=== PATIENT | male | born 1945 | race Caucasian/White ===

== ENCOUNTER 2016-06-10 11:06 | Emergency (ER) | payer OTHER ==
[~2016-06-10] VITALS: Ht 175.3 cm; Wt 85.0 kg
[2016-06-10 11:59] VITALS: BP 140/90; PULSE 110; RESP 17; TEMP 99.2; O2SAT 92
[2016-06-10 12:02] LABS: BASOPHIL % 0.3 % (0.0-2.0); EOSINOPHIL % 0.6 % (0.0-4.0); HEMATOCRIT 44.2 % (39.0-51.0); HEMO FLAGS DIFF FINAL; LYMPH % 17.8 % (9.0-44.0); LYMPHOCYTE # 1.2 TH/MM3 (1.0-4.8); MEAN CELL VOLUME 94.6 FL (80.0-100.0); MEAN CORPUSCULAR HEMOGLOBIN 33.2 PG (27.0-34.0); MEAN CORPUSCULAR HGB CONC 35.1 % (32.0-36.0); MONO % 8.1 % (0.0-8.0); NEUT % 73.2 % (16.0-70.0); PLATELET COUNT 226 TH/MM3 (150-450); RED BLOOD COUNT 4.67 MIL/MM3 (4.50-5.90); RED CELL DISTRIBUTION WIDTH 13.5 % (11.6-17.2); WHITE BLOOD COUNT 6.9 TH/MM3 (4.0-11.0)
[2016-06-10 12:08] LABS: AMPHETAMINE, URINE NEG (NEG); BARBITURATES, URINE NEG (NEG); COCAINE, URINE NEG (NEG)
[2016-06-10 12:19] LABS: ALT (GPT) 25 U/L (12-78); ANION GAP 8 MEQ/L (5-15); AST (GOT) 8 U/L (15-37); BICARBONATE 26.7 MEQ/L (21.0-32.0); BLOOD UREA NITROGEN 8 MG/DL (7-18); CHLORIDE 103 MEQ/L (98-107); GLOMERULAR FILTRATION RATE 77 ML/MIN (>89); POTASSIUM 3.5 MEQ/L (3.5-5.1); SODIUM (NA) 138 MEQ/L (136-145)
[2016-06-10 12:21] LABS: ALKALINE PHOSPHATASE 55 U/L (45-117); TOTAL BILIRUBIN ADULT 0.8 MG/DL (0.2-1.0)
--- NOTE | 2016-06-10 12:29 | PD ---
HPI Chief Complaint: Psychiatric Symptoms Time Seen by Provider: 12:24 Travel History International Travel<30 days: No Contact w/Intl Traveler<30days: No Traveled to known affect area: No History of Present Illness HPI Patient is a 70-year-old male who was brought into the emergency Department under Miranda act after threatening to hurt himself. Patient states that he went to [facility] this morning and had a "conflict". Patient states that his was not getting good care, she was discharged from there with no instructions. He states that she is home now and a solicitor came to the door selling a water softener which she signed up for that costing $10,000. He states that she is not getting enough oxygen to her brain and that now he has to prove this in order to not have to pay that Bill. Patient states that he did tell the staff at [facility] that he would hurt himself with anything happen to his but he stated that he wasn't going to do anything right now that was only if something happened to her. Patient states he feels very anxious. He endorses occasional marijuana use. His past medical history is significant for hypertension, diabetes, Parkinson's, neuropathy. [facility] Past Medical History Anxiety: Yes Cardiovascular Problems: Yes Diabetes: Yes Hypertension: Yes Neurologic: Yes (peripheral neuropathy) Parkinson's Disease: Yes Past Surgical History Tonsillectomy: Yes Other Surgery: Yes (hernia x2) Social History Alcohol Use: No Tobacco Use: No Substance Use: Yes (occasional marijuana) Allergies-Medications (Allergen,Severity, Reaction): Coded Allergies: No Known Allergies (Verified Allergy, Mild, 06/21/03) Reported Meds & Prescriptions Reported Meds & Active Scripts Active Review of Systems Except as stated in HPI: all other systems reviewed are Neg Psychiatric: Positive: Anxiety, Depression Physical Exam Narrative GENERAL: Disheveled, alert, elderly male. Ears anxious, in no acute distress. SKIN: Warm and dry. HEAD: Atraumatic. Normocephalic. EYES: Pupils equal and round. No scleral icterus. No injection or drainage. ENT: No nasal bleeding or discharge. Mucous membranes pink and moist. NECK: Trachea midline. No JVD. CARDIOVASCULAR: Regular rate and rhythm. No murmur appreciated. RESPIRATORY: No accessory muscle use. Clear to auscultation. Breath sounds equal bilaterally. GASTROINTESTINAL: Abdomen soft, non-tender, nondistended. Hepatic and splenic margins not palpable. MUSCULOSKELETAL: No obvious deformities. No clubbing. No cyanosis. No edema. NEUROLOGICAL: Awake and alert. No obvious cranial nerve deficits. Motor grossly within normal limits. Normal speech. PSYCHIATRIC: Anxious mood and affect; insight and judgment impaired. Data Data Last Documented VS Vital Signs Date Time Temp Pulse Resp B/P Pulse Ox O2 Delivery O2 Flow Rate FiO2 06/10/16 13:33 85 20 95 Room Air 06/10/16 11:59 99.2 140/90 Orders Complete Blood Count With Diff (06/10/16 11:21) Comprehensive Metabolic Panel (06/10/16 11:21) Drug Screen, Random Urine (06/10/16 11:21) Alcohol (Ethanol) (06/10/16 11:21) Psych Screen (06/10/16 11:21) Buspirone (Buspar) (06/10/16 12:30) Labs Laboratory Tests Test 06/10/16 06/10/16 11:45 11:50 Urine Opiates Screen NEG Urine Barbiturates Screen NEG Urine Amphetamines Screen NEG Urine Benzodiazepines Screen POS Urine Cocaine Screen NEG Urine Cannabinoids Screen POS White Blood Count 6.9 TH/MM3 Red Blood Count 4.67 MIL/MM3 Hemoglobin 15.5 GM/DL Hematocrit 44.2 % Mean Corpuscular Volume 94.6 FL Mean Corpuscular Hemoglobin 33.2 PG Mean Corpuscular Hemoglobin 35.1 % Concent Red Cell Distribution Width 13.5 % Platelet Count 226 TH/MM3 Mean Platelet Volume 8.3 FL Neutrophils (%) (Auto) 73.2 % Lymphocytes (%) (Auto) 17.8 % Monocytes (%) (Auto) 8.1 % Eosinophils (%) (Auto) 0.6 % Basophils (%) (Auto) 0.3 % Neutrophils # (Auto) 5.0 TH/MM3 Lymphocytes # (Auto) 1.2 TH/MM3 Monocytes # (Auto) 0.6 TH/MM3 Eosinophils # (Auto) 0.0 TH/MM3 Basophils # (Auto) 0.0 TH/MM3 CBC Comment DIFF FINAL Differential Comment Sodium Level 138 MEQ/L Potassium Level 3.5 MEQ/L Chloride Level 103 MEQ/L Carbon Dioxide Level 26.7 MEQ/L Anion Gap 8 MEQ/L Blood Urea Nitrogen 8 MG/DL Creatinine 0.97 MG/DL Estimat Glomerular Filtration 77 ML/MIN Rate Random Glucose 128 MG/DL Calcium Level 10.4 MG/DL Total Bilirubin 0.8 MG/DL Aspartate Amino Transf 8 U/L (AST/SGOT) Alanine Aminotransferase 25 U/L (ALT/SGPT) Alkaline Phosphatase 55 U/L Total Protein 7.9 GM/DL Albumin 4.1 GM/DL Ethyl Alcohol Level LESS THAN 3 MG/DL MDM Medical Decision Making Medical Screen Exam Complete: Yes Emergency Medical Condition: Yes Interpretation(s) Vital Signs Date Time Temp Pulse Resp B/P Pulse Ox O2 Delivery O2 Flow Rate FiO2 06/10/16 11:59 99.2 110 17 140/90 92 Differential Diagnosis Mood disorder versus substance abuse versus delirium versus psychosis versus anxiety versus dementia Narrative Course Patient is a 70-year-old male brought in under Miranda act after is an altercation at [facility] and subsequently stating that if anything happened to his he would harm himself. Patient appears anxious, he gets tearful when he speaks about his 's health condition. His thought process seems irrational at this time. Labs ordered and pending, psych screen ordered and pending medical clearance. Patient's vital signs assessed, his heart rate is mildly tachycardic with a rate of 110 but again patient appears anxious and is easily worked up when he speaks of his . Patient states he takes Valium at home for his anxiety. CBC is unremarkable, and chemistry is unremarkable, toxic screen shows positive for benzos and THC. Patient admits to both. Patient's heart rate was reassessed at 85, patient is medically cleared this time for psychiatric evaluation. Diagnosis Primary Impression: Medical clearance for psychiatric admission Condition: Stable Magnolia Knox Jun 10, 2016 12:29
[2016-06-10] MEDS ORDERED: busPIRone HCL 10 MG TAB PO ONE ×2 (12:30→20:45)
[2016-06-10 13:33] VITALS: PULSE 85; RESP 20; O2SAT 95
[2016-06-10 18:23] VITALS: BP 137/75; PULSE 99; RESP 18; TEMP 99.2; O2SAT 100
[2016-06-10] MEDS ORDERED: ATOR40TA16 PO (18:51)
[2016-06-10] MEDS ORDERED: METF850T PO (18:51)
[2016-06-10] MEDS ORDERED: DONE10TA7 PO (18:51)
[2016-06-10] MEDS ORDERED: MEMA28CA PO (18:51)
[2016-06-10] MEDS ORDERED: GABA300C5 PO (18:51)
[2016-06-10] MEDS ORDERED: LEXA20TA PO (18:51)
[2016-06-10] MEDS ORDERED: DIAZ10TA PO (19:02)
[2016-06-10 22:40] VITALS: BP 118/68; PULSE 85; RESP 18; O2SAT 99
[2016-06-11 02:31] VITALS: BP 116/73; PULSE 91; RESP 18; O2SAT 98
[2016-06-11 06:22] VITALS: BP 126/75; PULSE 84; RESP 18; O2SAT 98
[2016-06-11 10:13] VITALS: BP 118/61; PULSE 96; RESP 18; O2SAT 93
--- NOTE | 2016-06-11 12:10 | PD ---
History of Present Illness Chief Complaint: Psychiatric Symptoms Time Seen by Provider: 11:45 Travel History International Travel<30 Days: No Contact w/Intl Traveler<30days: No Known affected area: No Legal Status Legal Status: Miranda Act Miranda Act Signed By: Glen Hurst Miranda Act Comment: 2016 @ 1024 History of Present Illness: History of Present Illness Patient is a 70-year-old male with no previous psychiatric history who was brought to the emergency Department under Miranda act after threatening to hurt himself. As per the BA report the police responded to a disturbance. They found the patient causing a disturbance at a nursing facility after his was discharged. When he was questioned by the police he stated " he will harm himself and others as a result of this situation". Patient states that he went to [facility] this morning and had a "conflict". As per ED documentation " Patient states that he did tell the staff at [facility] that he would hurt himself with anything happen to his but he stated that he wasn't going to do anything right now that was only if something happened to her" . Patient states he feels very anxious. He endorses occasional marijuana use and presents with positive toxicology. As per EMR review he has not had previous contact with [facility] psychiatry dept. Patient has been monitored in [facility]. he has not presented any behavioral concerns and has no suicidality. He is alert and oriented, engaging and cooperative. He tends to be verbose but answers questions. His speech is clear and logical. There is no evidence of any hallucinations, no delusions and no paranoia. He deneis any significant depression. Does acknowledge feeling anxious and has oralia taking Valium " for many years now". He denies any suicidal or homicidal ideation, intent or plan. States " I said I was going to kill myself but doesn' t everyone say that at some time. That is absolutely foolish thing and I believe in God". He does report feeling overwhelmed at times due to having to take care of his . [facility] Past Medical History Anxiety: Yes Cardiovascular Problems: Yes Diabetes: Yes Hypertension: Yes Neurologic: Yes (peripheral neuropathy) Parkinson's Disease: Yes Past Surgical History Tonsillectomy: Yes Other Surgery: Yes (hernia x2) Psychiatric History Psychiatric History Hx Psychiatric Treatment: DENIES any History of Inpatient Treatment: No Guns or firearms in home: No Social History x 44 years. 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 Has no children. has one brother in [place]. Hx Alcohol Use: No Hx Tobacco Use: No Hx Substance Use: Yes Substance Use Type: Marijuana Hx of Substance Use Treatment: No Family Psychiatric History Negative Allergies-Medications (Allergen,Severity, Reaction): Coded Allergies: No Known Allergies (Verified Allergy, Mild, 06/21/03) Reported Meds & Prescriptions Reported Meds & Active Scripts Active Reported Diazepam 10 Mg Tab 10 Mg PO BID PRN Metformin (Metformin HCl) 850 Mg Tab 850 Mg PO BIDPC With meals Donepezil 10 Mg Tab 10 Mg PO HS Gabapentin 300 Mg Cap 300 Mg PO BID Atorvastatin (Atorvastatin Calcium) 40 Mg Tab 40 Mg PO HS Namenda Xr (Memantine) 28 Mg Caper 28 Mg PO DAILY Lexapro (Escitalopram Oxalate) 20 Mg Tab 20 Mg PO DAILY Review of Systems Constitutional: COMPLAINS OF: Fatigue Endocrine: COMPLAINS OF: Heat/cold intolerance Eyes: DENIES: Blurred vision, Diplopia, Eye inflammation, Eye pain, Vision loss , Photosensitivity, Double Vision Ears, nose, mouth, throat: DENIES: Tinnitus, Hearing loss, Vertigo, Nasal discharge, Oral lesions, Throat pain, Hoarseness, Ear Pain, Running Nose, Epistaxis, Sinus Pain, Toothache, Odynophagia Respiratory: DENIES: Apneas, Cough, Snoring, Wheezing, Hemoptysis, Sputum production, Shortness of breath Cardiovascular: DENIES: Chest pain, Palpitations, Syncope, Dyspnea on Exertion , PND, Lower Extremity Edema, Orthopnea, Claudication Genitourinary: DENIES: Sexual dysfunction, Urinary frequency, Urinary incontinence, Urgency, Hematuria, Dysuria, Nocturia, Penile Discharge, Testicular Pain, Testicular Swelling Musculoskeletal: COMPLAINS OF: Muscle aches, Stiffness Integumentary: DENIES: Abnormal pigmentation, Nail changes, Pruritus, Rash Hematologic/lymphatic: DENIES: Bruising, Lymphadenopathy Immunologic/allergic: DENIES: Eczema, Urticaria Neurologic: COMPLAINS OF: Abnormal gait Psychiatric: COMPLAINS OF: Anxiety Exam Alert: Yes [place]: Person (ox4) Mood: Anxious Affect: Euthymic Speech: Clear, Logical Eye Contact: Normal Memory Intact: Comment (no impairment) Hallucinations: Other (negative) Delusions: No Suicidal: Ideation (deneis any) Homicidal: Ideation (denies) Insight/Judgement fair. Not impaired MDM Medical Decision Making Medical Record Reviewed: Yes Assessment/Plan 70 year old male with no previous psychiatric history who is under a BA.Patient went to a nursing facility where his had received care to advocate for her and became upset with the [employer] administrator after he felt she did not seem to care what happened to his . He acknowledges he said ' Well I might as well home go home and kill myself". He does not in any way intended to mean that he was planning on killing himself or hurting anyone else. On the contrary he is seeking more assistance for his and for himself. At this time he does not meet BA criteria or criteria for inpatient treatment. Lift BA and discharge. Orders Buspirone (Buspar) (06/10/16 12:30) Buspirone (Buspar) (06/10/16 20:45) Blood Glucose (06/10/16 20:33) Diet Diabetic (06/11/16 Breakfast) Diet Diabetic (06/11/16 Dinner) Results Vital Signs Date Time Temp Pulse Resp B/P Pulse Ox O2 Delivery O2 Flow Rate FiO2 06/11/16 10:13 96 18 118/61 93 Room Air 06/11/16 06:22 84 18 126/75 98 06/11/16 02:31 91 18 116/73 98 Room Air 06/10/16 22:40 85 18 118/68 99 Room Air 06/10/16 18:23 99.2 99 18 137/75 100 Room Air 06/10/16 13:33 85 20 95 Room Air Diagnosis Primary Impression: Adjustment disorder Psychiatrically Cleared: Yes Med/ Other Pt Specific Info: No Change to Meds Disposition: 01 DISCHARGE HOME Condition: Stable Problem Qualifiers Primary Impression: Adjustment disorder Qualified Code: F43.22 - Adjustment disorder with anxious mood Amparo Butchre Jun 11, 2016 12:10
== END 2016-06-11 14:20 | disposition home or self-care (01) ==
LOC: NEPJ 11:06
DX: F43.22 Adjustment disorder with anxiety (principal); E11.9 Type 2 diabetes mellitus without complications; I10 Essential (primary) hypertension; G20 Parkinson's disease; G62.9 Polyneuropathy, unspecified
CPT/HCPCS: 80053; 80307; 80320; 85025; 99283

== ENCOUNTER 2018-07-25 09:52 | Inpatient (IN) ==
--- NOTE | 2018-07-25 10:25 | ED ---
HPI General Chief Complaint: Psychiatric Symptoms Stated Complaint: Psych Eval/OBPD Time Seen by Provider: 07/25/18 10:14 Source: patient Mode of arrival: EMS Limitations: no limitations History of Present Illness HPI Narrative: Patient was brought in as a Miranda act, the subject's called 911 and had an officer that came to the home and Miranda act the patient. Apparently per patient he took a Valium may be as many as 102 120 according to patient he took him last night. He states that he took them because he is tired of feeling sick all the time...patient was dx with prostate ca, receiving radiation therapy since June. per he has not had suicidal ideation or attempts in past. MD complaint: Reports suicidal ideation and feels depressed Onset (ago): day(s) Duration: constant History of same: No Relieving factors: none Exacerbating factors: none Associated symptoms: Reports denies other symptoms If self harm: admits thoughts of self harm Related Data Home Medications Medication Instructions Recorded Confirmed atorvastatin 20 mg PO DAILY 06/09/18 06/09/18 coenzyme Q10 [CoQ-10] 200 mg PO DAILY 06/09/18 06/09/18 diazepam 20 mg PO DAILY 06/09/18 06/09/18 escitalopram oxalate 20 mg PO DAILY 06/09/18 06/09/18 gabapentin 300 mg PO DAILY 06/09/18 06/09/18 gabapentin 600 mg PO HS 06/09/18 06/09/18 memantine-donepezil [Namzaric] 1 cap PO DAILY 06/09/18 06/09/18 mirabegron [Myrbetriq] 50 mg PO DAILY 06/09/18 06/09/18 olanzapine 5 mg PO DAILY 06/09/18 06/09/18 omega-3 fatty acids-fish oil [Fish 2 cap PO DAILY 06/09/18 06/09/18 Oil] tamsulosin 0.4 mg PO BID 06/09/18 06/09/18 Allergies Allergy/AdvReac Type Severity Reaction Status Date / Time Penicillins Allergy Hives Verified 06/09/18 11:53 Review of Systems ROS: all other systems reviewed are negative PMFSH History History Provided By: Patient Medical History Medical History Low blood pressure (Acute) Prostate CA (Acute) Social History Social History Substance History: No History of Abuse Second Hand Smoke Exposure: No Smoking Status: Never smoker Tobacco Type: Cigarettes How Often Do You Have a Drink Containing Alcohol: Never Recent Travel in [facility] within the Last 8 Weeks: No Recent Out of Country Travel within the Last 8 Weeks: No Exam Narrative Exam Narrative: GENERAL: Elderly male patient in no apparent distress. SKIN: Warm and dry. HEAD: Atraumatic. Normocephalic. EYES: Pupils equal and round. No scleral icterus. No injection or drainage. ENT: No nasal bleeding or discharge. Mucous membranes pink and moist. NECK: Trachea midline. No JVD. CARDIOVASCULAR: Regular rate and rhythm. no rubs or gallops RESPIRATORY: No accessory muscle use. Clear to auscultation. Breath sounds equal bilaterally. GASTROINTESTINAL: Abdomen soft, non-tender, nondistended. No rebound or guarding MUSCULOSKELETAL: Extremities without clubbing, cyanosis, or edema. No obvious deformities. NEUROLOGICAL: Awake and alert. No obvious cranial nerve deficits. Motor grossly within normal limits. Five out of 5 muscle strength in the arms and legs. Normal speech. PSYCHIATRIC: Appropriate mood and affect; insight and judgment normal. Course Initial Documented Vital Signs Temperature 98.0 F 07/25/18 10:04 Pulse Rate 61 07/25/18 10:04 Respiratory Rate 18 07/25/18 10:04 Blood Pressure 105/59 L 07/25/18 10:04 Pulse Oximetry 94 L 07/25/18 10:04 Last Documented Vital Signs Temperature 98.0 F 07/25/18 10:04 Pulse Rate 56 L 07/25/18 11:10 Respiratory Rate 15 07/25/18 11:10 Blood Pressure 135/66 07/25/18 11:10 Pulse Oximetry 96 07/25/18 11:10 Medical Decision Making [facility] Narrative Medical decision making narrative: Slight lowering of WBC 3.6, this is lower than on June 09, 2018 when he was 6.4 No anemia normal platelet count no major left shift Normal kidney liver functions Normal TSH screen Mild hypernatremia 150, potassium 3.4, chloride 118. UA consistent with UTI Negative Tylenol and aspirin and alcohol Tox screen currently pending as of 1200 Chest x-ray read by radiologist as under aerated otherwise negative Tox screen resulted at 1240 only positive for benzo On reevaluation the patient is awake alert able to stand on his own alert and oriented x4, and the patient has not had any evidence of obtundation Medical Screen Exam Complete: Yes Emergency Medical Condition: Yes Medical Records Medical records reviewed: Yes I reviewed the patient's medical records. Lab Data Lab results reviewed: Yes I reviewed the patient's lab results. Result diagrams: 07/25/18 10:15 07/25/18 10:15 Lab Results 07/25/18 07/25/18 07/25/18 Range/Units 10:15 10:15 10:15 WBC 3.6 L (4.0-11.0) th/mm3 RBC 4.18 L (4.50-5.90) mil/mm3 Hgb 13.8 (13.0-17.0) gm/dL Hct 39.8 (39.0-51.0) % MCV 95.3 (80.0-100.0) fL MCH 33.1 (27.0-34.0) pg MCHC 34.8 (32.0-36.0) % RDW 12.6 (11.6-17.2) % Plt Count 165 (150-450) th/mm3 MPV 7.8 (7.0-11.0) fL Neut % (Auto) 75.9 H (16.0-70.0) % Lymph % (Auto) 15.8 (9.0-44.0) % [place] % (Auto) 6.5 (0.0-8.0) % Eos % (Auto) 1.3 (0.0-4.0) % Baso % (Auto) 0.5 (0.0-2.0) % Neut # (Auto) 2.8 (1.8-7.7) th/mm3 Lymph # (Auto) 0.6 L (1.0-4.8) th/mm3 [place] # (Auto) 0.2 (0.0-0.9) th/mm3 Eos # (Auto) 0.0 (0.0-0.4) th/mm3 Baso # (Auto) 0.0 (0.0-0.2) th/mm3 WBC Differential . Differential Comment Auto diff final Sodium (136-145) meq/L Potassium (3.5-5.1) meq/L Chloride (98-107) meq/L Carbon Dioxide (21.0-32.0) meq/L Anion Gap (5-15) meq/L BUN (7-18) mg/dL Creatinine (0.60-1.30) mg/dL Estimated GFR (>89) mL/min Random Glucose (74-106) mg/dL Calcium (8.5-10.1) mg/dL Total Bilirubin (0.2-1.0) mg/dL AST (15-37) U/L ALT (12-78) U/L Alkaline Phosphatase (45-117) U/L Total Protein (6.4-8.2) g/dL Albumin (3.4-5.0) g/dL TSH (0.358-3.740) uIU/mL Urine Color (Yellw/Straw) Urine Clarity (Clear) Urine pH (5.0-8.5) Ur Specific [place] (1.002-1.035) Urine Protein (Neg-Trace) mg/dL Urine Glucose (UA) (Negative) mg/dL Urine Ketones (Negative) mg/dL Urine Occult Blood (Negative) Urine Nitrate (Negative) Urine Bilirubin (Negative) Urine Urobilinogen (Less than 2) mg/dL Ur Leukocyte Esterase (Negative) Urine RBC (0-3) /hpf Urine WBC (0-5) /hpf Ur Squamous Epith Cells (0-5) /hpf Urine Bacteria (None) /hpf Micro UA Comment Ur Microscopic Review Urine Culture Comments Salicylates Less than 1.7 L (2.8-20.0) mg/dL Urine Opiates Screen (Neg) Acetaminophen Cancelled Ur Barbiturates Screen (Neg) Ur Amphetamines Screen (Neg) U Benzodiazepines Scrn (Neg) Urine Cocaine Screen (Neg) U Cannabinoids Screen (Neg) Serum Alcohol (0-5) mg/dL 07/25/18 07/25/18 07/25/18 Range/Units 10:15 11:30 11:30 WBC (4.0-11.0) th/mm3 RBC (4.50-5.90) mil/mm3 Hgb (13.0-17.0) gm/dL Hct (39.0-51.0) % MCV (80.0-100.0) fL MCH (27.0-34.0) pg MCHC (32.0-36.0) % RDW (11.6-17.2) % Plt Count (150-450) th/mm3 MPV (7.0-11.0) fL Neut % (Auto) (16.0-70.0) % Lymph % (Auto) (9.0-44.0) % [place] % (Auto) (0.0-8.0) % Eos % (Auto) (0.0-4.0) % Baso % (Auto) (0.0-2.0) % Neut # (Auto) (1.8-7.7) th/mm3 Lymph # (Auto) (1.0-4.8) th/mm3 [place] # (Auto) (0.0-0.9) th/mm3 Eos # (Auto) (0.0-0.4) th/mm3 Baso # (Auto) (0.0-0.2) th/mm3 WBC Differential Differential Comment Sodium 150 H (136-145) meq/L Potassium 3.4 L (3.5-5.1) meq/L Chloride 118 H (98-107) meq/L Carbon Dioxide 24.3 (21.0-32.0) meq/L Anion Gap 8 (5-15) meq/L BUN 14 (7-18) mg/dL Creatinine 0.67 (0.60-1.30) mg/dL Estimated GFR Greater than 89 (>89) mL/min Random Glucose 100 (74-106) mg/dL Calcium 8.0 L (8.5-10.1) mg/dL Total Bilirubin 0.3 (0.2-1.0) mg/dL AST 15 (15-37) U/L ALT 31 (12-78) U/L Alkaline Phosphatase 38 L (45-117) U/L Total Protein 5.6 L (6.4-8.2) g/dL Albumin 2.7 L (3.4-5.0) g/dL TSH 2.200 (0.358-3.740) uIU/mL Urine Color Yellow (Yellw/Straw) Urine Clarity Hazy H (Clear) Urine pH 6.0 (5.0-8.5) Ur Specific [place] 1.014 (1.002-1.035) Urine Protein Negative (Neg-Trace) mg/dL Urine Glucose (UA) Negative (Negative) mg/dL Urine Ketones Negative (Negative) mg/dL Urine Occult Blood Negative (Negative) Urine Nitrate Negative (Negative) Urine Bilirubin Negative (Negative) Urine Urobilinogen Less than 2 (Less than 2) mg/dL Ur Leukocyte Esterase Large H (Negative) Urine RBC 2 (0-3) /hpf Urine WBC 19 H (0-5) /hpf Ur Squamous Epith Cells 2 (0-5) /hpf Urine Bacteria Rare H (None) /hpf Micro UA Comment Culture indicated Ur Microscopic Review Not Reportable Urine Culture Comments Culture indicated Salicylates (2.8-20.0) mg/dL Urine Opiates Screen Neg (Neg) Acetaminophen 2.7 L Ur Barbiturates Screen Neg (Neg) Ur Amphetamines Screen Neg (Neg) U Benzodiazepines Scrn Pos H (Neg) Urine Cocaine Screen Neg (Neg) U Cannabinoids Screen Neg (Neg) Serum Alcohol Less than 3 (0-5) mg/dL Imaging Data Attestation: I personally reviewed and interpreted this imaging study as follows : Radiologist's impression: Chest X-Ray 07/25/18 10:14 CONCLUSION: Under aerated otherwise negative ECG Data EKG Prior to Arrival: No Attestation: I personally reviewed and interpreted this ECG as follows: Prior ECG tracings: not available for review Interpretation: Normal sinus rhythm, 59 bpm, heavy motion artifact due to the patient's baseline resting tremor Discharge Plan Discharge Disposition Patient Disposition: Sign Out(ED Internal Use Only) Discharge Condition Condition: Stable Discharge Details Diagnosis: Acute UTI, Depression with suicidal ideation Physicians Team ED Provider: Jeronimo Mitchell Rxs /Orders / Referrals /Forms Prescriptions: No Action atorvastatin 20 mg Tablet 20 mg PO DAILY RF: 0 olanzapine 5 mg Tablet 5 mg PO DAILY RF: 0 tamsulosin 0.4 mg Capsule 0.4 mg PO BID RF: 0 gabapentin 300 mg Capsule 600 mg PO HS RF: 0 gabapentin 300 mg Capsule 300 mg PO DAILY RF: 0 diazepam 10 mg Tablet 20 mg PO DAILY RF: 0 escitalopram oxalate 20 mg Tablet 20 mg PO DAILY RF: 0 coenzyme Q10 [CoQ-10] 100 mg Capsule 200 mg PO DAILY RF: 0 omega-3 fatty acids-fish oil [Fish Oil] 360-1,200 mg Capsule 2 cap PO DAILY RF: 0 mirabegron [Myrbetriq] 50 mg Tablet Extended Release 24 Hr 50 mg PO DAILY RF: 0 memantine-donepezil [Namzaric] 28-10 mg Capsule,Sprinkle,Er 24hr 1 cap PO DAILY RF: 0 Discharge Instructions Patient Printed Instructions: Depression (ED), Help Prevent Suicide (ED), Suicide Prevention (ED) Status ED Status: Medically Cleared
[2018-07-25 10:33] LABS: Baso % (Auto) 0.5 % (0.0-2.0); Eos % (Auto) 1.3 % (0.0-4.0); Hematocrit 39.8 % (39.0-51.0); Hemoglobin 13.8 gm/dL (13.0-17.0); Lymph # (Auto) 0.6 th/mm3 (1.0-4.8); Lymph % (Auto) 15.8 % (9.0-44.0); Mean Corpuscular HGB Conc 34.8 % (32.0-36.0); Mean Corpuscular Hemoglobin 33.1 pg (27.0-34.0); Mean Corpuscular Volume 95.3 fL (80.0-100.0); Mean Platelet Volume 7.8 fL (7.0-11.0); Mono # (Auto) 0.2 th/mm3 (0.0-0.9); Mono % (Auto) 6.5 % (0.0-8.0); Neut # (Auto) 2.8 th/mm3 (1.8-7.7); Neut % (Auto) 75.9 % (16.0-70.0); Platelet Count 165 th/mm3 (150-450); Red Blood Count 4.18 mil/mm3 (4.50-5.90); Red Cell Distribution Width 12.6 % (11.6-17.2); White Blood Count 3.6 th/mm3 (4.0-11.0)
[2018-07-25 10:48] LABS: Albumin 2.7 g/dL (3.4-5.0); Anion Gap 8 meq/L (5-15); Blood Urea Nitrogen 14 mg/dL (7-18); Carbon Dioxide 24.3 meq/L (21.0-32.0); Chloride 118 meq/L (98-107); Glomerular Filtration Rate Greater Than 89 mL/min (>89); Glucose,Random 100 mg/dL (74-106); Potassium 3.4 meq/L (3.5-5.1); Sodium 150 meq/L (136-145)
[2018-07-25 10:49] LABS: Aspartate Aminotransferase 15 U/L (15-37)
--- NOTE | 2018-07-25 10:51 | XR ---
EXAM DATE: 07/25/2018 10:43 AM EST AGE/SEX: 72 years / Male INDICATIONS: Possible Overdose, Short of Breath CLINICAL DATA: This is the patient's initial encounter. Patient reports that signs and symptoms have been present for 1 day and indicates a pain score of Nonresponsive. MEDICAL/SURGICAL HISTORY: Non-responsive. Non-responsive. COMPARISON: [facility], CHEST 1V SINGLE AP, 06/09/2018. . FINDINGS: A single AP view of the chest demonstrates the lungs to be under aerated without evidence of mass, in filtrate or effusion. The cardiomediastinal contours are unremarkable. Osseous structures are intac t. CONCLUSION: Under aerated otherwise negative Electronically signed by: Chai Rodriguez MD Board Certified Radiologist 07/25/2018 10:49 AM EST
[2018-07-25 11:00] LABS: Acetaminophen 2.7 mcg/mL (10.0-30.0); Alanine Aminotransferase 31 U/L (12-78); Alkaline Phosphatase 38 U/L (45-117); Total Protein 5.6 g/dL (6.4-8.2)
[2018-07-25 11:47] LABS: Bacteria,Urine Rare /hpf; Bilirubin,Urine Negative (Negative); Clarity,Urine Hazy (Clear); Color,Urine Yellow (Yellw/Straw); Glucose,Urine (UA) Negative (Negative); Leukocyte Esterase,Urine Large (Negative); Nitrite,Urine Negative (Negative); Specific Gravity,Urine 1.014 (1.002-1.035); Squamous Epithelial Cell,Urine 2 /hpf (0-5)
[2018-07-25 11:59] LABS: Amphetamine Screen,Urine Neg (Neg); Barbiturate Screen,Urine Neg (Neg); Cannabinoid Screen,Urine Neg (Neg); Cocaine Screen,Urine Neg (Neg)
[2018-07-25] MEDS ORDERED: Ciprofloxacin 500 MG Tablet PO ONE (12:00)
[2018-07-25 12:10] LABS: Opiate Screen,Urine Neg (Neg)
--- NOTE | 2018-07-25 13:30 | ECG ---
Date Performed: 07/25/2018 Time Performed: 10:06:21 PTAGE: 72 years EKG: SINUS BRADYCARDIA ABNORMAL RHYTHM ECG PREVIOUS TRACING : 06/09/2018 11.36 Since the previous tracing, no significant change noted DOCTOR: Curtis Sullivan Interpretating Date/Time 07/25/2018 13:28:40
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
[2018-07-25] MEDS ORDERED: Aluminum/Magnesium/Simethacone Susp 30 ML UDC PO PRN (15:22)
[2018-07-25] MEDS: Senna/Docusate Sodium 8.6/50 MG Tablet PO SCH (21:17)
[2018-07-26] MEDS: Senna/Docusate Sodium 8.6/50 MG Tablet PO SCH ×2 (08:27→20:57)
[2018-07-26 09:04] LABS: Calcium 10.2 mg/dL (8.5-10.1); Carbon Dioxide 28.3 meq/L (21.0-32.0); Chol/HDL Ratio 2.3 Ratio; HDL Cholesterol 43.4 mg/dL (40.0-60.0); Potassium 3.6 meq/L (3.5-5.1)
--- NOTE | 2018-07-26 15:03 | P.CONIM ---
History of Present Illness Reason for Consult: Hypotension, indwelling Wright catheter, excess pharyngeal secretions Primary Care Provider: Manoj Villeda Chief Complaint: FTT History of Present Illness: Mr. Resendez is a 72-year-old male. He has been brought into the hospital secondary to recurrent major depression. At baseline he is not ambulatory and 1 of the problems he is been having his difficulty swallowing and handling his own secretions. Last night he had to be deep suctioned due to respiratory distress with hypoxia dropping down to 84%. After suctioning he has been improved but still has secretions. He has a history of prostate cancer and an indwelling Wright catheter. At this point patient's not able to provide any history. Review of Systems ROS Unobtainable: unobtainable due to mental condition and unobtainable due to mental status [facility] Medical History Medical History Low blood pressure (Acute) Prostate CA (Acute) Family History Family History Other Osteoarthritis Social History Social History Substance History: No History of Abuse Second Hand Smoke Exposure: No Smoking Status: Never smoker Tobacco Type: Cigarettes How Often Do You Have a Drink Containing Alcohol: Never Immunization History Tetanus Immunization: Unable to Assess Hx Influenza Vaccine This Season: Unable to Assess Medications and Allergies Allergies Allergy/AdvReac Type Severity Reaction Status Date / Time Penicillins Allergy Hives Verified 06/09/18 11:53 Home Medications Medication Instructions Recorded Confirmed Type atorvastatin 20 mg PO DAILY 06/09/18 06/09/18 History coenzyme Q10 [CoQ-10] 200 mg PO DAILY 06/09/18 06/09/18 History diazepam 20 mg PO DAILY 06/09/18 06/09/18 History escitalopram oxalate 20 mg PO DAILY 06/09/18 06/09/18 History gabapentin 300 mg PO DAILY 06/09/18 06/09/18 History gabapentin 600 mg PO HS 06/09/18 06/09/18 History memantine-donepezil [Namzaric] 1 cap PO DAILY 06/09/18 06/09/18 History mirabegron [Myrbetriq] 50 mg PO DAILY 06/09/18 06/09/18 History olanzapine 5 mg PO DAILY 06/09/18 06/09/18 History omega-3 fatty acids-fish oil [Fish 2 cap PO DAILY 06/09/18 06/09/18 History Oil] tamsulosin 0.4 mg PO BID 06/09/18 06/09/18 History Active Medications: Active Medications Al Hydrox/Mg Hydrox/Simethicone (Mag-Al Plus Susp Liq) 30 ml PO Q6H PRN PRN Reason: DYSPEPSIA Al Hydroxide/Mg Hydroxide (Milk Of Magnesia Liq) 30 ml PO Q12H PRN PRN Reason: Mild Constipation Senna/Docusate Sodium (Sheryl-Colace) 1 tab PO BID CATE Last Admin: 07/26/18 08:27 Dose: Not Given Physical Exam Vital signs: Vital Signs 07/25/18 17:00 07/25/18 17:03 07/25/18 20:00 Temperature 98.5 F Pulse Rate 65 Respiratory Rate 16 18 Blood Pressure 91/52 L Pulse Oximetry 93 L 93 L 07/26/18 05:32 07/26/18 08:32 Temperature 98.8 F Pulse Rate 96 H Respiratory Rate 16 14 Blood Pressure 94/52 L Pulse Oximetry 94 L Intake & Output 07/25/18 07/26/18 07/26/18 18:59 06:59 18:59 Intake Total 0 / 0 Output Total 1250 / 1250 115 / 115 Balance -1250 / -1250 -115 / -115 Weight 84.5 kg Intake: Oral 0 / 0 Output: Urine 1250 / 1250 Urine Amount (Catheter) 115 / 115 Indwelling Urethral Catheter 115 / 115 Other: Weight On Admission 84.5 kg Narrative: GENERAL: NAD, A&Ox0 HEAD: Normocephalic. NECK: Supple, trachea midline. No lymphadenopathy. EYES: No scleral icterus. No injection or drainage. CARDIOVASCULAR: Regular rate and rhythm without murmurs, gallops, or rubs. RESPIRATORY: Breath sounds equal bilaterally. No accessory muscle use. GASTROINTESTINAL: Abdomen soft, non-tender, nondistended. MUSCULOSKELETAL: No cyanosis, or edema. SKIN: Warm and dry. NEURO: Global lethargy, global weakness Urinary Catheter Management Indwelling Urethral Catheter: Cath placed during this visit: yes Reason for continuing: Other continuation reason Insertion date: 07/25/18 Insertion time: 11:58 Results Labs CBC & Chem 7: 07/25/18 10:15 07/26/18 07:55 Assessment and Plan (1) Recurrent major depression: Code(s): F33.9 - Major depressive disorder, recurrent, unspecified Status: Acute (2) PTSD (post-traumatic stress disorder): Code(s): F43.10 - Post-traumatic stress disorder, unspecified Status: Acute (3) Suicide attempt: Code(s): T14.91XA - Suicide attempt, initial encounter Status: Acute (4) Prostate cancer: Code(s): C61 - Malignant neoplasm of prostate Status: Acute Plan 72-year-old male admitted to med psych secondary to major depression Recurrent major depression Continue care under psychiatry for this condition Hyper secretions at pharynx Scopolamine patch added as patient cannot take p.o. Levsin Monitor for changes in secretions Suction as needed Hypotension Blood pressure stable in the 90 systolic As long as blood pressures remain stable no need for further intervention Avoid antihypertensive treatments History of prostate cancer Chronic indwelling Wright catheter Follow clinically Consider removal of Wright catheter as an outpatient with urology Failure to thrive Dysphasia Global weakness Obtain thyroid studies Check testosterone levels Hospice might be an option that should be considered if patient has no improvement DVT prophylaxis SCDs
[2018-07-26] MEDS: Sod Chloride 0.9% Inj 1,000 ML IV.CONT SCH (15:23)
[2018-07-26] MEDS ORDERED: Scopalamine 1.5 MG Patch T-DERMAL SCH (16:00)
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
[2018-07-26 16:51] LABS: Free T4 (Free Thyroxine) 0.89 ng/dL (0.76-1.46); Thyroid Stimulating Hormone 0.756 uIU/mL (0.358-3.740); Triiodothyronine (T3) Free 1.17 pg/mL (2.18-3.98)
[2018-07-26] MEDS: Azithromycin Inj 500 MG in Sodium Chlor 0.9% Inj 250 ML IV.SIG SCH (17:20)
[2018-07-27] MEDS: Sod Chloride 0.9% Inj 1,000 ML IV.CONT SCH ×2 (03:27→15:32)
[2018-07-27] MEDS: Senna/Docusate Sodium 8.6/50 MG Tablet PO SCH ×2 (08:13→20:45)
--- NOTE | 2018-07-27 09:11 | P.CONPSY ---
Provisional Diagnosis Admission Date: July 25, 2018 15:27 [place] I.: Major depressive disorder History of Present Illness Service: Psychiatry Consult date: 07/27/18 Requesting Physician: Krishan Gayle Reason for Consult: Second opinion petition supporting Miranda act Primary Care Provider: Manoj Villeda Chief Complaint: FTT History of Present Illness: Patient is a 72-year-old white male with a significant overdose of benzodiazepines admitted to [facility] under Dr. Gayle. Dr. Gayle H&P reviewed Dr. Gayle is signed first opinion petition supporting Miranda act. I agree. Patient meets criteria for further inpatient psychiatric hospitalization under the Miranda act thus I will cosign second opinion petition supporting Miranda act. Patient seen by me with floor staff. Patient in his room laying in bed quietly markedly sedated there are IVs following with him. He is arousable only to some mumbling responses that are essentially disorganized and incoherent. Thus at this time he continues to meet criteria for involuntary psychiatric hospitalization Review of Systems unobtainable due to mental condition PMFSH - History History Provided By: Patient, Family Member, Medical Record - Medical History Medical History: Medical History (Last Reviewed 07/27/18 @ 08:08 by Minerva Avalos [facility]) Low blood pressure Prostate CA - Family History Family History: Family History (Last Reviewed 07/25/18 @ 10:18 by Jeronimo Mitchell) Other Osteoarthritis - Tobacco History Second Hand Smoke Exposure: No Tobacco Use In Past 30 Days: No Smoking Status: Former smoker Tobacco Type: Cigarettes - Alcohol History How Often Do You Have a Drink Containing Alcohol: Never - Substance Use History Substance History: Past History - Substance Use Type Alcohol Route Used: By Mouth Comment: According to patient's , patient has been clean for 14 years - Travel History Recent Travel in the [place] Within the Last 8 Weeks: No Recent Travel Out of the Country Within the Last 8 Weeks: No - Immunization History Tetanus Immunization: Unable to Assess Hx Influenza Vaccine This Season: Unable to Assess Medications and Allergies Active Medications: Active Medications Al Hydrox/Mg Hydrox/Simethicone (Mag-Al Plus Susp Liq) 30 ml PO Q6H PRN PRN Reason: DYSPEPSIA Al Hydroxide/Mg Hydroxide (Milk Of Magnesia Liq) 30 ml PO Q12H PRN PRN Reason: Mild Constipation Escitalopram Oxalate (Lexapro) 20 mg PO DAILY [facility] Last Admin: 07/27/18 08:13 Dose: Not Given Sodium Chloride (Ns Inj) 1,000 mls @ 100 mls/hr IV.CONT .Q10H [facility] Last Admin: 07/27/18 03:27 Dose: 100 mls/hr Azithromycin 500 mg/ Sodium (Chloride) 250 mls @ 250 mls/hr IV.SIG Q24H [facility] Last Infusion: 07/26/18 18:52 Dose: Infused Ceftriaxone Sodium 1,000 mg/ (Sodium Chloride) 100 mls @ 200 mls/hr IV.SIG Q24H [facility] Last Infusion: 07/26/18 20:56 Dose: Infused Olanzapine (Zyprexa) 5 mg PO HS [facility] Last Admin: 07/26/18 22:48 Dose: Not Given Scopolamine (Transderm-Scop 1.5 Mg Patch.72hr) 1 patch T-DERMAL Q3D [facility] Last Admin: 07/26/18 16:41 Dose: 1 patch Senna/Docusate Sodium (Sheryl-Colace) 1 tab PO BID [facility] Last Admin: 07/27/18 08:13 Dose: Not Given Allergies Allergy/AdvReac Type Severity Reaction Status Date / Time Penicillins Allergy Hives Verified 06/09/18 11:53 Home Medications Medication Instructions Recorded Confirmed Type atorvastatin 20 mg PO DAILY 06/09/18 06/09/18 History coenzyme Q10 [CoQ-10] 200 mg PO DAILY 06/09/18 06/09/18 History diazepam 20 mg PO DAILY 06/09/18 06/09/18 History escitalopram oxalate 20 mg PO DAILY 06/09/18 06/09/18 History gabapentin 300 mg PO DAILY 06/09/18 06/09/18 History gabapentin 600 mg PO HS 06/09/18 06/09/18 History memantine-donepezil [Namzaric] 1 cap PO DAILY 06/09/18 06/09/18 History mirabegron [Myrbetriq] 50 mg PO DAILY 06/09/18 06/09/18 History olanzapine 5 mg PO DAILY 06/09/18 06/09/18 History omega-3 fatty acids-fish oil [Fish 2 cap PO DAILY 06/09/18 06/09/18 History Oil] tamsulosin 0.4 mg PO BID 06/09/18 06/09/18 History Exam Vital signs: Vital Signs 07/26/18 16:00 07/26/18 16:27 07/26/18 16:51 Temperature 100.4 F H 100.4 F H Pulse Rate 86 86 Respiratory Rate 18 18 18 Blood Pressure 98/59 L 82/52 L 82/52 L Pulse Oximetry 93 L 87 L 93 L 07/26/18 20:00 07/27/18 06:00 Temperature 98.0 F Pulse Rate 92 H Respiratory Rate 14 18 Blood Pressure 103/60 Pulse Oximetry 93 L Intake & Output 07/26/18 07/27/18 07/27/18 18:59 06:59 18:59 Intake Total 250 / 250 1100 / 1100 Output Total 350 / 350 Balance 250 / 250 750 / 750 Intake: IV 250 / 250 1100 / 1100 NS Inj 1,000 ML @ 100 mls/hr IV 1000 / 1000 .CONT .Q10H [facility] Rx#:[id number] Azithromycin Inj 500 MG In NS 250 / 250 Inj 250 ML @ 250 mls/hr IV.SIG Q24H [facility] Rx#:[id number] Rocephin Inj 1,000 MG In NS Inj 100 / 100 100 ML @ 200 mls/hr IV.SIG Q24H [facility] Rx#:[id number] Oral 0 / 0 Output: Urine 350 / 350 Narrative: Patient laying in bed markedly sedated minimally arousable he is in no respiratory distress. Mental Status Examination Appearance: Appropriate Consciousness: Somnolent (To minimally arousable) Orientation: Situation (Difficult to assess due to patient's sedation) Motor Activity: Other Speech: Other (Difficult to assess due to patient's sedation) Language: Other (Difficult to assess due to patient's sedation) Fund of Knowledge: Poor (Difficult to assess due to patient's sedation) Attention and Concentration: Other (Difficult to assess due to patient's sedation) Memory: Impaired (Difficult to assess due to patient's sedation) Mood: Sad, Other (Patient sedated difficult to assess) Affect: Other (Difficult to assess due to patient's sedation) Thought Process & Associations: Other (Difficult to assess due to patient's sedation) Thought Content: Other (Difficult to assess due to patient's sedation) Hallucination Type: Other (Difficult to assess due to patient's sedation) Delusion Type: Other (Difficult to assess due to patient's sedation) Suicidal Ideation: Yes Suicidal Plan: Yes (overdosed on two btls of valium) Suicidal Intention: Yes Homicidal Ideation: Yes Homicidal Plan: No Homicidal Intention: No Insight: Poor Judgment: Poor Assessment and Plan - Assessment (1) Major depressive disorder Code(s): F32.9 - Major depressive disorder, single episode, unspecified Status : Acute - Plan Plan: At this time patient continues to meet Ruth act criteria thus I will cosign second opinion petition supporting Miranda act Justification for Continued Inpatient Stay: At this time patient with decompensated placed in a lower level of care Discharge Planning: To be determined (1) Major depressive disorder Qualifiers: Major depression recurrence: recurrent Active/Remission status: currently active Major depression episode severity: severe Psychotic features: without psychotic features Qualified Code(s): F33.2 - Major depressive disorder, recurrent severe without psychotic features
--- NOTE | 2018-07-27 11:45 | P.PNIM ---
Subjective Interval history: Follow-up visit hyper secretions at pharynx, hypotension, fever Patient seen and examined while resting in bed. Patient with Tmax 100.4F overnight, discussed with RN. Patient keeps eyes closed during time of examination. States he doesn't feel too well. Drooling noted on washcloth underneath neck and chin. Physical Exam Vital signs: Vital Signs 07/26/18 16:00 07/26/18 16:27 07/26/18 16:51 Temperature 100.4 F H 100.4 F H Pulse Rate 86 86 Respiratory Rate 18 18 18 Blood Pressure 98/59 L 82/52 L 82/52 L Pulse Oximetry 93 L 87 L 93 L 07/26/18 20:00 07/27/18 06:00 07/27/18 08:16 Temperature 98.0 F Pulse Rate 92 H Respiratory Rate 14 18 18 Blood Pressure 103/60 Pulse Oximetry 93 L Intake & Output 07/26/18 07/27/18 07/27/18 18:59 06:59 18:59 Intake Total 250 / 250 1100 / 1100 Output Total 350 / 350 Balance 250 / 250 750 / 750 Intake: IV 250 / 250 1100 / 1100 NS Inj 1,000 ML @ 100 mls/hr IV 1000 / 1000 .CONT .Q10H [facility] Rx#:[id number] Azithromycin Inj 500 MG In NS 250 / 250 Inj 250 ML @ 250 mls/hr IV.SIG Q24H [facility] Rx#:[id number] Rocephin Inj 1,000 MG In NS Inj 100 / 100 100 ML @ 200 mls/hr IV.SIG Q24H [facility] Rx#:[id number] Oral 0 / 0 Output: Urine 350 / 350 Narrative: GENERAL: NAD, A&Ox0 HEAD: Normocephalic, atraumatic NECK: Supple, trachea midline. No lymphadenopathy. EYES: No scleral icterus. No injection or drainage. CARDIOVASCULAR: Regular rate and rhythm without murmurs, gallops, or rubs. RESPIRATORY: Breath sounds equal bilaterally. No accessory muscle use. GASTROINTESTINAL: Abdomen soft, non-tender, nondistended. MUSCULOSKELETAL: No cyanosis, or edema. SKIN: Warm and dry. NEURO: Global lethargy, global weakness Urinary Catheter Management Indwelling Urethral Catheter: Cath placed during this visit: yes Reason for continuing: Acute urinary retention Insertion date: 07/25/18 Insertion time: 11:58 Results Labs CBC & Chem 7: 07/25/18 10:15 07/26/18 07:55 Labs: Microbiology 07/25/18 11:30 Clean Catch Urine Urine Culture - Final No growth in 48 hours Assessment and Plan (1) Major depressive disorder: Code(s): F32.9 - Major depressive disorder, single episode, unspecified Status: Acute Plan 72-year-old male admitted to med psych secondary to major depression Recurrent major depression -primary mgmt per psych Hyper secretions at pharynx -scopolamine patch added as patient cannot take p.o. Levsin -Suction as needed Hypotension -Blood pressure stable in the low 100's systolic -avoid antihypertensive treatments Fever -Tmax 100.4 F overnight -CXR and UA 07/25/18 reviewed and shows no active infectious process -continue IV Ceftriaxone and Azithro -monitor fever curve History of prostate cancer -Chronic indwelling Wright catheter -Follow clinically -Consider removal of Wright catheter as an outpatient with urology Failure to thrive Dysphasia Global weakness -thyroid studies reviewed -testosterone levels pending Hospice might be an option that should be considered if patient has no improvement DVT prophylaxis SCDs Code Status: Full Discussed Condition With: RN, patient, supervising MD Discharge Planning: per primary team, may consider hospice Progress Note: Quality VTE Deep Vein Thrombosis/Pulmonary Embolism Present on Admission: No _ (1) Major depressive disorder Qualifiers: Active/Remission status: currently active Major depression episode severity: severe Major depression recurrence: recurrent Psychotic features: without psychotic features Qualified Code(s): F33.2 - Major depressive disorder, recurrent severe without psychotic features
--- NOTE | 2018-07-27 15:04 | P.PNPSY ---
Subjective Remarks: Patient seen for follow up; chart reviewed. Discussion with nursing staff reported to have oral secretions requiring suctioning, speech therapy had seen patient recommended patient be n.p.o. for now as patient is lethargic. Patient was found lying in hospital bed continued with lethargy having difficulty opening his eyes and engaging adequately in interview is feeling tired and has difficulty opening his eyes. Patient is responsive but noted to have significant somnolence and being lethargic secondary to recent benzodiazepine overdose. Patient at this time unable to participate effectively interview due to sedation from recent overdose. Review of Systems All other systems reviewed negative except as stated in HPI Mental Status Examination Appearance: Appropriate Consciousness: Lethargic, Somnolent (To minimally arousable) Orientation: Situation (Difficult to assess due to patient's sedation) Motor Activity: Other Speech: Other (Difficult to assess due to patient's sedation) Language: Other (Difficult to assess due to patient's sedation) Fund of Knowledge: Poor (Difficult to assess due to patient's sedation) Attention and Concentration: Other (Difficult to assess due to patient's sedation) Memory: Impaired (Difficult to assess due to patient's sedation) Mood: Sad, Other (Patient sedated difficult to assess) Affect: Other (Difficult to assess due to patient's sedation) Thought Process & Associations: Other (Difficult to assess due to patient's sedation) Thought Content: Other (Difficult to assess due to patient's sedation) Hallucination Type: Other (Difficult to assess due to patient's sedation) Delusion Type: Other (Difficult to assess due to patient's sedation) Suicidal Ideation: Yes Suicidal Plan: Yes (overdosed on two btls of valium) Suicidal Intention: Yes Homicidal Ideation: Yes Homicidal Plan: No Homicidal Intention: No Insight: Poor Judgment: Poor Assessment and Plan - Assessment (1) Major depressive disorder Code(s): F32.9 - Major depressive disorder, single episode, unspecified Status : Acute - Plan Plan: Patient this time continues require further medical stabilization, continues with significant lethargy and somnolence secondary to recent overdose and unable to precipitate cycle at this time. We will continue current treatment. Continue to monitor. Hospitalist input appreciated. Discharge planning in progress. Justification for Continued Inpatient Stay: At risk of further decompensation at lower level care. (1) Major depressive disorder Qualifiers: Major depression recurrence: recurrent Active/Remission status: currently active Major depression episode severity: severe Psychotic features: without psychotic features Qualified Code(s): F33.2 - Major depressive disorder, recurrent severe without psychotic features
[2018-07-27 17:08] VITALS: BP 119/62; PULSE 90; TEMP 99.7
[2018-07-27] MEDS: Azithromycin Inj 500 MG in Sodium Chlor 0.9% Inj 250 ML IV.SIG SCH (17:34)
[2018-07-27 21:29] VITALS: RESP 16
[2018-07-28] MEDS: Sod Chloride 0.9% Inj 1,000 ML IV.CONT SCH (00:58)
[2018-07-28 05:57] LABS: ABG Base Excess 3.9 mmol/L (-2-2); ABG PCO2 54 mmHg (38-42); ABG PO2 58 mmHG (61-120)
--- NOTE | 2018-07-28 06:23 | P.PNADD ---
Addendum to Inpatient Note Reason for Addendum: Additional Documentation (I reviewed the below documentation. - Nura Aleman) Additional information: S: Lucia called at 5:40 a.m., due to patient suddenly being unresponsive with low oxygenation saturations at 79% on room air. Residents responded. This is a 72-year-old male admitted for overdose on Valium 3 days ago. Patient also found to be neutropenic at 3.6 but absolute neutrophil count was within normal limits. Concurrently on Rocephin and azithromycin for a UTI and pneumonia prophylaxis due to patient spiking a fever yesterday and having hyper secretions , also on scopolamine. Per nurse, patient has been "drowsy" since admission, but arousable to pain stimuli. Patient recently had a change in baseline, became nonresponsive to pain stimuli or sternal rub, was found to have low oxygen saturations of 79%, lucia was called for patient to be evaluated. Residents arrived at bedside, patient was sitting up in bed, in acute respiratory distress, on a nonrebreather on 100% O2. O: Vitals: BP: 107/80, pulse: 82, temp: 98.8, respiratory rate: 19, SaO2: 91 ( on 100% O2 on nonrebreather) General: Elderly appearing male, in respiratory distress, on nonrebreather, alert and oriented x0, groaning and moaning to nail bed stimuli. CVS: Distant heart sounds, regular rate and rhythm, grade 1 systolic murmur appreciated at the left sternal border. Respiratory: Anterior auscultation, clear bilaterally. Abdomen: Soft, nondistended. Extremities: Warm, well-perfused, no edema. A/P: 72-year-old male admitted for Valium overdose 3 days ago, spiking fevers overnight, on azithromycin and Rocephin, with hyper secretions, found to be unresponsive with low oxygen saturation. Rule out possible aspiration pneumonia, with hyper secretions, patient currently afebrile. Repeat chest x-ray. Continue suction of secretions. Continue to monitor patient's mental status, currently responsive to nail bed stimuli, patient currently not on any sedating drugs. Avoid sedating drugs. ABG: PH: 7.35, CO2: 54, O2: 58, bicarb: 29. Chronic compensated primary respiratory acidosis Patient currently 91% on nonrebreather. Potential respiratory decline. Transferred to ICU for BiPAP, low threshold for intubation. EKG ordered. CBC ordered, evaluate neutropenia/ANC. Consider switching antibiotic regimens if patient continues to spike fevers. Consider blood cultures. To be transferred to the ICU for medical management. Hospitalist Notified. Library Assistant consulted. Appreciate recommendations.
[2018-07-28 06:56] VITALS: O2SAT 98
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
== END 2018-07-28 06:52 | disposition short-term general hospital (02) | DRG 885 ==
LOC: NEPE 09:52 → NEDA 15:27 → H4EA 16:00 → NEDA 16:12
PROVIDERS: ADMIT Student in an Organized Health Care Education/Training Program; ATTEND Student in an Organized Health Care Education/Training Program
DX: Z62.812 Personal history of neglect in childhood; D70.9 Neutropenia, unspecified; R13.10 Dysphagia, unspecified; Z92.3 Personal history of irradiation; Z88.0 Allergy status to penicillin; R01.1 Cardiac murmur, unspecified; Z92.21 Personal history of antineoplastic chemotherapy; F33.2 Major depressive disorder, recurrent severe without psychotic features; R06.03 Acute respiratory distress; Z85.46 Personal history of malignant neoplasm of prostate; N39.0 Urinary tract infection, site not specified; J69.0 Pneumonitis due to inhalation of food and vomit; R09.02 Hypoxemia; F43.10 Post-traumatic stress disorder, unspecified; E87.2 Acidosis; R33.9 Retention of urine, unspecified; T42.4X2A Poisoning by benzodiazepines, intentional self-harm, initial encounter; E78.00 Pure hypercholesterolemia, unspecified; E87.0 Hyperosmolality and hypernatremia; I95.9 Hypotension, unspecified; R54 Age-related physical debility; Z87.891 Personal history of nicotine dependence; Z62.810 Personal history of physical and sexual abuse in childhood; F10.11 Alcohol abuse, in remission; R62.7 Adult failure to thrive
CPT/HCPCS: 36600; 51702; 71010; 71045; 80048; 80053; 80061; 80307; 81001; 82533; 82805; 83036; 83605; 84402; 84403; 84439; 84443; 84481; 85025; 87086; 90792; 92610; 93005; 99285; G0195; J0456; J0696; J7030; J7050